=== PATIENT | female | born 1965 | race Caucasian/White ===

== ENCOUNTER 2020-05-09 14:58 | Outpatient (CLI) | payer BC, SELFPAY ==
--- NOTE | 2020-05-09 15:08 | MM_ITS ---
WS: [id number] BILATERAL DIGITAL SCREENING MAMMOGRAPHY WITH CAD CLINICAL INFORMATION: SCREENING HISTORY: Screening mammogram. No current complaints. COMPARISON: 2 16,018 TECHNIQUE: Bilateral CC and MLO views. FINDINGS: Scattered fibroglandular densities bilaterally. No suspicious focal mass, asymmetry, calcifications, or architectural distortion. No evidence of malignancy. Stable punctate and lucent centered calcifica tions. MM/[place] [id number] IMPRESSION: BI-RADS: 2-Benign FOLLOW UP: 1 Year Follow-up Recommend return to annual screening mammography.
== END 2020-05-09 14:59 | disposition home or self-care (01) ==
LOC: RADSHAW 15:06
PROVIDERS: PCP Registered Nurse; Visit Provider Registered Nurse
DX: Z12.31 Encounter for screening mammogram for malignant neoplasm of breast (principal)
CPT/HCPCS: 77067

== ENCOUNTER → 2022-06-12 14:01 | Outpatient (BNVA) | payer OTHER, SELFPAY | PROVIDERS: PCP Registered Nurse; Referring Provider Nurse Practitioner Family; Visit Provider Orthopaedic Surgery | DX: M17.12 Unilateral primary osteoarthritis, left knee (principal) | CPT/HCPCS: 73560; 73565 ==

== ENCOUNTER 2022-11-06 12:02 | Outpatient (CLI) | payer OTHER, SELFPAY ==
--- NOTE | 2022-11-06 12:06 | MM_ITS ---
WS: [id number] Bilateral screening 3D tomosynthesis digital mammogram, 11/06/2022 Clinical Data: SCREENING Comparison: 05/09/2020, 08/22/2017, 09/05/2016, 09/28/2015, 09/21/2014, 10/05/2013, 09/30/2012, 07/16/2011. Fin dings: The breast parenchymal pattern shows fibroglandular tissue. No spiculated masses or clustered calcifi cations are seen. There are no secondary signs of carcinoma. There are mole markers on both breasts. MM/[place] [id number] Impression: 1. Negative bilateral mammogram unchanged. 2. Recommend annual screening mammograms. BIRADS: 1-Negative FOLLOW UP: 1 Year Follow-up The CAD loom stop checker was used.
== END 2022-11-06 12:03 | disposition home or self-care (01) ==
LOC: RAD 12:04
PROVIDERS: PCP Registered Nurse; Visit Provider Nurse Practitioner Family
DX: Z12.31 Encounter for screening mammogram for malignant neoplasm of breast (principal)
CPT/HCPCS: 77063; 77067

== ENCOUNTER 2022-12-13 07:34 | Day surgery (SDC) | payer OTHER, SELFPAY ==
[2022-12-12 09:02] VITALS: BMI 30.3
[2022-12-13 08:37] VITALS: BP 148/93; PULSE 69; RESP 18; TEMP 36.1; O2SAT 96
[2022-12-13] MEDS: sodium chloride 0.9% 1,000 ML 30 ML IV (08:50)
--- NOTE | 2022-12-13 08:57 | ANES.PREANE2 ---
Pre-Anesthetic Assessment Height/Weight: Height 1.68 m Weight 85.275 kg Temp Pulse Resp BP Pulse Ox O2 Del Method 97.0 F L 69 18 148/93 96 Room Air 12/13/22 08:37 12/13/22 08:37 12/13/22 08:37 12/13/22 08:37 12/13/22 08:37 12/13/22 08:37 Preop Diagnosis: Screening Operation Date: 12/13/22 09:15 Proposed Procedures p Colonoscopy 90136,Z12.11(Not Applicable) - Hayes Robertson DO Familial anesthetic complications: None Was Beta Jimmy taken within 24 hours: N/A Was Clonidine taken within 24 hours: N/A Last intake: Intake Last Liquid Date 12/12/22 Last Liquid Time 23:00 Last Solid Date 12/11/22 Last Solid Time 21:00 Social No alcohol and No tobacco Exam alert, oriented x 3, clear to auscultation bilaterally and regular rate & rhythm Airway Submandibular: within normal limits Cervical ROM: within normal limits Mallampati: Class III Dentition: partials (Not wearing) History/ROS No significant history except as noted and No significant complaints Pulmonary None reported CV/HEM None reported None reported Hepatic Cirrhosis GI None reported Metabolic Hyperlipidemia and Thyroid Disease [facility] [place]algia, Lower Back Pain and Osteoarthritis/DJD Neuropsych Neuropathy Anesthetic Plan ASA status: 2 Anesthesia: Anesthesia Evaluation, General and MAC Risk of > 500 ml blood loss (7ml/kg in children): No Medications/Allergies Home Medications Medication Instructions Recorded Confirmed Last Taken Type atorvastatin 80 mg tablet (Lipitor) 80 mg PO DAILY 01/09/22 12/13/22 12/11/22 History baclofen 10 mg tablet 10 mg PO DAILY 01/09/22 12/13/22 12/11/22 History levothyroxine 75 mcg tablet 75 mcg PO DAILY 01/09/22 12/13/22 12/10/22 History (Euthyrox) meloxicam 7.5 mg tablet 7.5 mg PO DAILY 01/09/22 12/13/22 12/10/22 History omeprazole 40 mg capsule,delayed 40 mg PO DAILY 01/09/22 12/13/22 12/10/22 History release triamcinolone acetonide 0.025 % 1 applic topical DAILY 01/09/22 12/13/22 12/06/22 History topical cream gabapentin 300 mg tablet 300 mg PO TID 12/12/22 12/13/22 12/10/22 History Allergies Allergy/AdvReac Type Severity Reaction Status Date / Time simvastatin Allergy Unknown Verified 12/13/22 08:34 Current Medications Generic Name Dose Route Start Last Admin Trade Name Freq PRN Reason Stop Dose Admin Sodium Chloride 1,000 mls @ 30 mls/hr 12/13/22 07:45 12/13/22 08:50 Sodium Chloride 0.9% IV 12/14/22 07:44 30 mls/hr .Q24H XIOMARA Administration PFSH Anesthesia Surgical History Hx of tubal ligation Family History Father Cancer lung Emphysema lung Unknown Diabetes Social History Smoking and tobacco status: former smoker Alcohol intake: current Alcohol intake frequency: holidays/special occasions only Data Anesthesia Cardiac Studies: No Data to Display
--- NOTE | 2022-12-13 09:49 | W.PM.OPSUD ---
Surgery/Procedure H&P Update DATE OF PROCEDURE: December 13, 2022 DATE H&P PERFORMED: 11/19/22 H&P UPDATE INFORMATION: I have reviewed H&P completed within last 30 days, I have examined patient prior to procedure and No changes to prior documentation PREOP DIAGNOSIS: Screening PLANNED PROCEDURE: Operation Date: 12/13/22 09:15 Proposed Procedures p Colonoscopy 50092,Z12.11(Not Applicable) - Hayes Robertson, DO
[2022-12-13 10:32] VITALS: BP 137/78; PULSE 77; RESP 14; TEMP 36.1; O2SAT 90
[2022-12-13 10:42] VITALS: BP 142/86; PULSE 76; RESP 16; O2SAT 94
[2022-12-13 10:50] VITALS: BP 136/78; PULSE 74; RESP 18; O2SAT 94
--- NOTE | 2022-12-13 13:57 | ANE.PACU2 ---
Inpatient post-anesthesia follow up: Airway intact: Yes Vital signs: Temperature 97.0 F Pulse Rate 74 Respiratory Rate 18 Blood Pressure 136/78 Pulse Oximetry 94 Oxygen Delivery Me thod Room Air Oxygen Flow Rate Fraction of Inspir ed Oxygen Hydration adequate: Yes Nausea and vomiting: Yes Pain level: 1 Mental status: Baseline
== END 2022-12-13 11:28 | disposition home or self-care (01) ==
PROVIDERS: PCP Registered Nurse; Visit Provider Surgery
PROC: 0DJD8ZZ Inspection of Lower Intestinal Tract, Via Natural or Artificial Opening Endoscopic (ICD-10-PCS; CPT 45378; principal; 2022-12-13 09:15)
DX: Z12.11 Encounter for screening for malignant neoplasm of colon (principal); K74.60 Unspecified cirrhosis of liver; E78.5 Hyperlipidemia, unspecified; E03.9 Hypothyroidism, unspecified; G62.9 Polyneuropathy, unspecified; Z87.891 Personal history of nicotine dependence; D12.2 Benign neoplasm of ascending colon
CPT/HCPCS: 45385; 88305; J2704; J3490; J7030

== ENCOUNTER → 2022-12-21 10:30 | Outpatient (BNVA) | payer OTHER, SELFPAY | PROVIDERS: PCP Registered Nurse; Visit Provider Emergency Medicine | DX: S92.525A Nondisplaced fracture of middle phalanx of left lesser toe(s), initial encounter for closed fracture (principal); W18.40XA Slipping, tripping and stumbling without falling, unspecified, initial encounter | CPT/HCPCS: 73630 ==

== ENCOUNTER 2024-07-23 14:50 | Outpatient (CLI) | payer OTHER, SELFPAY ==
--- NOTE | 2024-07-23 14:58 | MM_ITS ---
WS: [id number] BILATERAL 3D TOMOSYNTHESIS DIGITAL SCREENING MAMMOGRAPHY WITH CAD CLINICAL INFORMATION: SCREENING HISTORY: Screening mammogram. No current complaints. COMPARISON: 2022 TECHNIQUE: Bilateral CC and MLO views. FINDINGS: Scattered fibroglandular densities bilaterally. No suspicious focal mass, asymmetry, calcifications, or architectural distortion. No evidence of malignancy. Few incidental punctate calcifications. MM/MM [facility] tomosynthesis [id number] IMPRESSION: DENSITY: There are scattered areas of fibroglandular density. BI-RADS: 2 - Benign. FOLLOW UP: 1 Year Follow-up Recommend return to annual screening mammography.
== END 2024-07-23 14:51 | disposition home or self-care (01) ==
LOC: RAD 14:56
PROVIDERS: PCP Registered Nurse; Visit Provider Family Medicine
DX: Z12.31 Encounter for screening mammogram for malignant neoplasm of breast (principal); R92.323 Mammographic fibroglandular density, bilateral breasts; R92.1 Mammographic calcification found on diagnostic imaging of breast
CPT/HCPCS: 77063; 77067

== ENCOUNTER → 2025-05-06 14:25 | Outpatient (BNVA) | payer OTHER, SELFPAY | PROVIDERS: PCP Registered Nurse; Visit Provider Emergency Medicine | DX: M25.562 Pain in left knee (principal) | CPT/HCPCS: 73562 ==